=== PATIENT | female | born 1985 | race Caucasian/White ===

== ENCOUNTER 2025-01-04 09:18 | Inpatient (IN) | payer OTHER ==
[2025-01-04] MEDS: ELECTROLYTE-148 SOLN 1,000 ML IV ONE (10:00)
[2025-01-04 10:17] LABS: ABSOLUTE IMMATURE GRANULOCYTES 0.11 x10^3/uL (0.0-0.031); BASOPHILS # 0.02 x10^3/uL (0.01-0.08); EOSINOPHIL % 0.7 % (0.7-5.8); EOSINOPHILS # 0.07 x10^3/uL (0.04-0.36); MCHC 33.0 g/dl (32.2-35.5); MEAN CELL VOLUME 86.2 fl (79.4-94.8); MEAN PLT VOLUME 12.5 fl (9.4-12.3); MONOCYTE # 0.72 x10^3/uL (0.24-0.86); MONOCYTE % 6.7 % (4.7-12.5); RDW 13.8 % (12.1-16.8)
[2025-01-04 10:19] LABS: INR 0.93 (0.83-1.09); PROTHROMBIN TIME (PATIENT) 10.2 SEC (9.7-13.0)
[2025-01-04 10:22] LABS: ACTIVATED PTT 26.6 SECONDS (25.2-36.5)
[2025-01-04 10:30] VITALS: BMI 39.2
[2025-01-04] MEDS: ELECTROLYTE-148 SOLN 1,000 ML IV SCH (10:30)
[2025-01-04 10:47] LABS: CO2 20.0 mmol/L (21-32); GLUCOSE,RANDOM 96.0 mg/dL (74-106)
[2025-01-04 10:50] LABS: CREATININE 0.7 mg/dL (0.55-1.3)
[2025-01-04] MEDS: CITRIC ACID/SODIUM CITRATE 30 ML UNIT-DOSE CUP PO ONE (12:20)
[2025-01-04] MEDS ORDERED: ACETAMINOPHEN 325 MG TABLET (FP) PO PRN (12:56)
[2025-01-04] MEDS ORDERED: IBUPROFEN 600 MG TABLET (FP) PO PRN (12:56)
[2025-01-04] MEDS ORDERED: FENTANYL CITRATE/PF 50 MCG/ML VIAL ONE (13:45)
[2025-01-04] MEDS ORDERED: morphine SULFATE/PF 1 MG/2 ML (2cc Syringe - QUVA) ONE (13:45)
[2025-01-04] MEDS ORDERED: ONDANSETRON 4 MG/2 ML VIAL ONE ×2 (13:57→17:34)
[2025-01-04] MEDS ORDERED: OXYTOCIN 10 UNITS/ML VIAL ONE (14:17)
[2025-01-04] MEDS ORDERED: KETOROLAC TROMETHAMINE 30 MG/1 ML VIAL ONE (14:24)
[2025-01-04] MEDS ORDERED: DEXAMETHASONE SOD PHOSPHATE 4 MG/1 ML VIAL ONE (14:24)
[2025-01-04 15:16] LABS: CORD BASE EXCESS -6.400 mmol/L (0-2); CORD BASE EXCESS -6.700 mmol/L (0-2); CORD HCO3 21.8 mmHg (20-29); CORD HCO3 22.9 mmHg (20-29); CORD PCO2 54.2 mmHg (30-78); CORD PCO2 64.1 mmHg (30-78); CORD pH 7.170 (7.14-7.44); CORD pH 7.222 (7.14-7.44)
[2025-01-04] MEDS ORDERED: OXYTOCIN 20 UNITS in 0.9% NS 20 UNIT/1,000 ML INFUS.BAG IV ONE (15:24)
[2025-01-04] MEDS: OXYTOCIN 20 UNITS in 0.9% NS 20 UNIT/1,000 ML INFUS.BAG IV SCH (16:45)
[2025-01-04] MEDS ORDERED: METHYLERGONOVINE MALEATE 0.2 MG/1 ML AMP IM PRN (16:55)
[2025-01-04] MEDS ORDERED: BENZOCAINE 20% 57 GM BOTTLE TP PRN (16:55)
[2025-01-04] MEDS ORDERED: WITCH HAZEL 50% (TUCKS) 40 PAD/JAR PAD TP PRN (16:55)
[2025-01-04] MEDS ORDERED: BENZOCAINE 28 GM HEMORRHOIDAL OINTMENT TP PRN (16:55)
[2025-01-04] MEDS: ONDANSETRON 4 MG/2 ML VIAL IVPUSH PRN (17:40)
[2025-01-04] MEDS: CEFAZOLIN SODIUM 2 GM in DEXTROSE 5%-WATER 100 ML IVPB SCH (21:01)
[2025-01-04] MEDS: SIMETHICONE 80 MG TAB.CHEW (FP) PO PRN (21:08)
[2025-01-04 23:41] VITALS: RESP 18
[2025-01-05] MEDS: IBUPROFEN 800 MG/8 ML IJ IVPB PRN (06:17)
[2025-01-05 07:38] LABS: ABSOLUTE IMMATURE GRANULOCYTES 0.07 x10^3/uL (0.0-0.031); BASOPHILS # 0.02 x10^3/uL (0.01-0.08); EOSINOPHIL % 0.1 % (0.7-5.8); EOSINOPHILS # 0.01 x10^3/uL (0.04-0.36); MCHC 32.2 g/dl (32.2-35.5); MEAN CELL VOLUME 88.0 fl (79.4-94.8); MEAN PLT VOLUME 12.1 fl (9.4-12.3); MONOCYTE # 0.89 x10^3/uL (0.24-0.86); MONOCYTE % 8.0 % (4.7-12.5); RDW 13.7 % (12.1-16.8)
[2025-01-05] MEDS: PRENATAL VITAMINS W/ FOLIC ACID TABLET (FP) PO SCH (10:27)
[2025-01-05] MEDS ORDERED: BISACODYL 10 MG SUPP.RECT RC PRN (16:55)
[2025-01-05] MEDS: IBUPROFEN 600 MG TABLET (FP) PO PRN (21:38)
[2025-01-05] MEDS: ACETAMINOPHEN 325 MG TABLET (FP) PO PRN (23:07)
[2025-01-06] MEDS: SENNOSIDES/DOCUSATE COMBO (SENNA PLUS) TABLET (UD) PO PRN (20:40)
[2025-01-06 22:09] VITALS: PULSE 65; TEMP 98.1
[2025-01-07 07:01] LABS: ABSOLUTE IMMATURE GRANULOCYTES 0.05 x10^3/uL (0.0-0.031); BASOPHILS # 0.03 x10^3/uL (0.01-0.08); EOSINOPHIL % 2.1 % (0.7-5.8); EOSINOPHILS # 0.15 x10^3/uL (0.04-0.36); MCHC 32.3 g/dl (32.2-35.5); MEAN CELL VOLUME 87.8 fl (79.4-94.8); MEAN PLT VOLUME 12.3 fl (9.4-12.3); MONOCYTE # 0.61 x10^3/uL (0.24-0.86); MONOCYTE % 8.4 % (4.7-12.5); RDW 13.9 % (12.1-16.8)
[2025-01-07 08:00] VITALS: BP 117/70
== END 2025-01-07 12:55 | disposition home or self-care (01) | DRG 787 ==
LOC: JLDR 09:18 → J3W 17:55
PROVIDERS: ADMIT Obstetrics & Gynecology; ATTEND Obstetrics & Gynecology
PROC: 10D00Z1 Extraction of Products of Conception, Low, Open Approach (ICD-10-PCS; principal; 2025-01-04)
DX: O34.13 Maternal care for benign tumor of corpus uteri, third trimester (principal); O99.12 Other diseases of the blood and blood-forming organs and certain disorders involving the immune mechanism complicating childbirth; D69.6 Thrombocytopenia, unspecified; Z3A.37 37 weeks gestation of pregnancy; Z37.0 Single live birth
CPT/HCPCS: 36415; 36600; 80048; 82803; 85025; 85610; 85730; 86780; 86850; 86900; 86901; 88305-TC; 88307-TC